=== PATIENT | male | born 1985 | race Caucasian/White ===

== ENCOUNTER 2021-05-22 02:08 | Emergency (ER) | payer SELFPAY ==
[2021-05-22] MEDS ORDERED: MORPHINE 4 MG/ML SYR ONE (03:01)
[2021-05-22] MEDS ORDERED: ONDANSETRON 4 MG (ODT) TAB ONE (03:02)
--- NOTE | 2021-05-22 04:51 | ER ---
Nurse's Notes [facility] Name: Caleb Espinoza Age: 35 yrs Sex: Male : 1985 Arrival Date: 05/22/2021 Time: 02:10 Bed 20 Private MD: Diagnosis: Dental caries, unspecified Presentation: 05/22 02:28 Chief complaint: Patient states: Left lower jaw pain, severe tonight; Reports unable to lp1 afford to have tooth pulled. Coronavirus screen: At this time, the client does not indicate any symptoms associated with coronavirus-19. Ebola Screen: No symptoms or risks identified at this time. Risk Assessment: Do you want to hurt yourself or someone else? Patient reports no desire to harm self or others. Onset of symptoms was May 22, 2021. 02:28 Acuity: [place] 4 lp1 02:28 Method Of Arrival: Ambulatory lp1 02:34 Initial Sepsis Screen: Does the patient meet any 2 criteria? No. Patient's initial lp1 sepsis screen is negative. Does the patient have a suspected source of infection? No. Patient's initial sepsis screen is negative. Triage Assessment: 02:35 General: Appears uncomfortable, Behavior is restless. lp1 02:39 EENT: Reports pain in left jaw. Neuro: Level of Consciousness is awake, alert, obeys lp1 commands. Historical: - Allergies: 02:35 No Known Allergies; lp1 - Home Meds: 02:35 None [Active]; lp1 - PMHx: 02:35 None; lp1 - PSHx: 02:35 None; lp1 - Immunization history:: Adult Immunizations up to date. - Social history:: Smoking status: Patient/guardian denies using tobacco, the patient reports quitting approximately 2 years ago. Screenin:43 Abuse screen: Denies threats or abuse. Nutritional screening: No deficits noted. ag7 Tuberculosis screening: No symptoms or risk factors identified. Fall Risk No fall in past 12 months (0 pts). No secondary diagnosis (0 pts). No IV (0 pts). Ambulatory Aid- None/Bed Rest/Nurse Assist (0 pts). Gait- Normal/Bed Rest/Wheelchair (0 pts) Mental Status- Overestimates/Forgets Limitations (15 pts.). Total Hurt Fall Scale indicates No Risk (0-24 pts). Assessment: 02:41 General: Appears in no apparent distress. uncomfortable, Behavior is cooperative, ag7 anxious. Pain: Complains of pain in left jaw Pain currently is 10 out of 10 on a pain scale. Quality of pain is described as sharp, shooting, stabbing, Pain began suddenly, Is continuous. Neuro: Level of Consciousness is awake, alert, obeys commands, Oriented to person, place, time, situation, Appropriate for age. Cardiovascular: Denies chest pain. Respiratory: Airway is patent Trachea midline Respiratory effort is even, unlabored, Respiratory pattern is regular, symmetrical. EENT: Oral mucosa is moist. Poor dentition noted. Dental caries noted in lower left second molar (#18). 03:49 Reassessment: Patient and/or family updated on plan of care and expected duration. Pain ag7 level reassessed. Patient is alert, oriented x 3, equal unlabored respirations, skin warm/dry/pink. Patient states feeling better. Patient states symptoms have improved. Vital Signs: 02:34 BP 168 / 105; Pulse 68; Resp 18; Temp 97.2(TE); Pulse Ox 99% on R/A; Weight 79.38 kg lp1 (R); Height 6 ft. 2 in. (187.96 cm); Pain 10/10; 03:33 Pain 5/10; ag7 04:57 BP 124 / 81 LA (auto/lg); Pulse 49 MON; Resp 18 S; Pulse Ox 100% on R/A; Pain 5/10; ag7 02:34 Body Mass Index 22.47 (79.38 kg, 187.96 cm) lp1 ED Course: 02:10 Patient arrived in ED. kz 02:30 Triage completed. lp1 02:30 Arm band placed on left wrist. lp1 02:35 Patient has correct armband on for positive identification. lp1 02:41 Kelley Ramirez, JASS is Primary Nurse. ag7 02:44 No provider procedures requiring assistance completed. ag7 02:49 Chano Delarosa MD is Attending Physician. kdr 04:58 Patient did not have IV access during this emergency room visit. ag7 Administered Medications: 03:07 Drug: Zofran (Ondansetron) 4 mg Route: PO; ag7 03:34 Follow up: Response: No adverse reaction ag7 03:08 Drug: morphine 4 mg {Note: RASS 1.} Route: IM; Site: right deltoid; ag7 03:33 Follow up: Pain 5/10; Response: No adverse reaction; Pain is decreased; RASS: Drowsy ag7 (-1) Outcome: 04:50 Discharge ordered by . kdr 04:58 Discharged to home ambulatory. ag7 04:58 Condition: stable 04:58 Discharge instructions given to patient, Instructed on discharge instructions, follow up and referral plans. medication usage, Demonstrated understanding of instructions, follow-up care, medications, Prescriptions given X 2. 04:59 Patient left the ED. ag7 Signatures: Chano Delarosa MD MD kdr Dayami Sinha RN RN lp1 Jazzy Fox Angela, RN RN ag7 Corrections: (The following items were deleted from the chart) 02:39 02:35 General: Appears uncomfortable, Behavior is restless, lp1 lp1
--- NOTE | 2021-05-22 04:51 | EDPHYS ---
Physician Documentation [facility] Name: Caleb Espinoza Age: 35 yrs Sex: Male : 1985 Arrival Date: 05/22/2021 Time: 02:10 Bed 20 Private MD: ED Physician Chano Delarosa HPI: 05/22 06:21 This 35 yrs old Male presents to ER via Ambulatory with complaints of Toothache. kdr 06:21 The patient presents with pain, swelling. The problem is located in the lower left kdr third molar, lower left second molar, lower left first molar and lower left second bicuspid. Onset: The symptoms/episode began/occurred suddenly, just prior to arrival. Duration: The symptoms are continuous, and are unchanged since they started. Modifying factors: The symptoms are alleviated by nothing, the symptoms are aggravated by nothing. Associated signs and symptoms: The patient has no apparent associated signs or symptoms. Severity of symptoms: At their worst the symptoms were mild, moderate, just prior to arrival, in the emergency department the symptoms are unchanged. The patient has experienced similar episodes in the past, a few times. The patient has not recently seen a physician. Historical: - Allergies: 02:35 No Known Allergies; lp1 - Home Meds: 02:35 None [Active]; lp1 - PMHx: 02:35 None; lp1 - PSHx: 02:35 None; lp1 - Immunization history:: Adult Immunizations up to date. - Social history:: Smoking status: Patient/guardian denies using tobacco, the patient reports quitting approximately 2 years ago. ROS: 06:21 Constitutional: Negative for fever, chills, and weight loss, Eyes: Negative for injury, kdr pain, redness, and discharge, Neck: Negative for injury, pain, and swelling, Cardiovascular: Negative for chest pain, palpitations, and edema, Respiratory: Negative for shortness of breath, cough, wheezing, and pleuritic chest pain. 06:21 ENT: Positive for dental pain, Gum pain Exam: 06:21 Constitutional: This is a well developed, well nourished patient who is awake, alert, kdr and in no acute distress. Head/Face: Normocephalic, atraumatic. Eyes: Pupils equal round and reactive to light, extra-ocular motions intact. Lids and lashes normal. Conjunctiva and sclera are non-icteric and not injected. Cornea within normal limits. Periorbital areas with no swelling, redness, or edema. Neck: Trachea midline, no thyromegaly or masses palpated, and no cervical lymphadenopathy. Supple, full range of motion without nuchal rigidity, or vertebral point tenderness. No Meningismus. Chest/axilla: Normal chest wall appearance and motion. Nontender with no deformity. No lesions are appreciated. 06:21 ENT: Mouth: Dental exam: dental caries, that is moderate, specifically in the lower left third molar (#17), lower left second molar (#18) and lower left first molar (#19), the patient wears dentures, missing teeth. Vital Signs: 02:34 BP 168 / 105; Pulse 68; Resp 18; Temp 97.2(TE); Pulse Ox 99% on R/A; Weight 79.38 kg lp1 (R); Height 6 ft. 2 in. (187.96 cm); Pain 10/10; 03:33 Pain 5/10; ag7 04:57 BP 124 / 81 LA (auto/lg); Pulse 49 MON; Resp 18 S; Pulse Ox 100% on R/A; Pain 5/10; ag7 02:34 Body Mass Index 22.47 (79.38 kg, 187.96 cm) lp1 MDM: 04:50 Patient medically screened. kdr 06:21 Data reviewed: vital signs, nurses notes. Counseling: I had a detailed discussion with kdr the patient and/or guardian regarding: the historical points, exam findings, and any diagnostic results supporting the discharge/admit diagnosis, the need for outpatient follow up. Administered Medications: 03:07 Drug: Zofran (Ondansetron) 4 mg Route: PO; ag7 03:34 Follow up: Response: No adverse reaction ag7 03:08 Drug: morphine 4 mg {Note: RASS 1.} Route: IM; Site: right deltoid; ag7 03:33 Follow up: Pain 5/10; Response: No adverse reaction; Pain is decreased; RASS: Drowsy ag7 (-1) Disposition Summary: 05/22/21 04:50 Discharge Ordered Location: Home kdr Problem: an acute exacerbation kdr Symptoms: have improved kdr Condition: Stable kdr Diagnosis - Dental caries, unspecified kdr Followup: kdr - With: Private Physician - When: 2 - 3 days - Reason: If symptoms return, Further diagnostic work-up, Recheck today's complaints, Continuance of care, Re-evaluation by your physician Discharge Instructions: - Discharge Summary Sheet kdr - Dental Pain, [id number] kdr - Dental Caries, Adult, [id number] kdr Forms: - Medication Reconciliation Form kdr - Thank You Letter kdr - Antibiotic Education kdr - Prescription Opioid Use kdr Prescriptions: - Amoxicillin 500 mg Oral Capsule - take 1 capsule by ORAL route every 8 hours for 10 days; 30 tablet; Refills: 0, kdr Product Selection Permitted - Tramadol 50 mg Oral Tablet - take 1 tablet by ORAL route every 8 hours as needed; 12 tablet; Refills: 0, kdr Product Selection Permitted Signatures: Chano Delarosa MD MD kdr Dayami Sinha RN RN lp1 Kelley Ramirez RN RN ag7
[2021-05-22 10:18] VITALS: TEMP 97.2
[2021-05-22 10:21] VITALS: BP 124/81; O2SAT 100
== END 2021-05-22 04:59 | disposition home or self-care (01) ==
LOC: ER 02:08
DX: K02.9 Dental caries, unspecified (principal)
CPT/HCPCS: 96372; 99283

== ENCOUNTER 2021-11-24 07:46 | Observation (INO) | payer SELFPAY ==
[2021-11-24 08:32] LABS: Absolute Lymphocytes (CBC) 1.7 K/uL (0.7-4.9); Hematocrit 46.2 % (39.6-49.0); Lymphocytes % 29.6 % (15.3-44.8); MCV 93.5 fL (80-100); MPV 8.6 fL (7.6-11.3); RBC Red Blood Cell Count 4.94 M/uL (4.33-5.43)
--- NOTE | 2021-11-24 08:39 | RAD REPORT ---
EXAM DESCRIPTION: CT - Head Brain Wo Cont - 11/24/2021 8:31 am CLINICAL HISTORY: Alteration of awareness/confusion COMPARISON: None. TECHNIQUE: Computed axial tomography of the head was obtained. IV contrast was not requested. All CT scans are performed using dose optimization technique as appropriate and may include automated exposure control or mA/KV adjustment according to patient size. FINDINGS: An intracranial bleed is not seen . The ventricles are normal in caliber. No significant hypodense areas within the brain visualized No extra-axial fluid collection is noted. Fluid within the sinuses/ mastoids is not seen. IMPRESSION: No acute intracranial abnormality is seen. If patient's symptoms persist MRI of the bra in would be recommended.
[2021-11-24 08:50] LABS: Potassium 3.8 mmol/L (3.5-5.1); Troponin High Sensitivity 5.7 pg/mL (<58.9)
[2021-11-24] MEDS ORDERED: NA CHLORIDE 0.9% 500 ML ONE (08:50)
[2021-11-24 09:19] LABS: Urine Blood Negative (Negative); Urine Glucose Negative (Negative); Urine Protein Negative (Negative); Urine Specific Gravity 1.015 (1.005-1.030)
--- NOTE | 2021-11-24 09:25 | RAD REPORT ---
EXAM DESCRIPTION: Christoph Single View11/24/2021 9:07 am CLINICAL HISTORY: Weakness and confusion COMPARISON: none FINDINGS: The lungs appear clear of acute infiltrate. The heart is normal size IMPRESSION: No acute abnormalities displayed
[2021-11-24 09:29] LABS: Protime INR 1.01
[2021-11-24 09:38] LABS: Barbiturates NEGATIVE (NEGATIVE); Benzodiazepines POSITIVE (NEGATIVE); Cocaine NEGATIVE (NEGATIVE); METHAMPHETAM NEGATIVE (NEGATIVE); Methadone NEGATIVE (NEGATIVE); Opiates NEGATIVE (NEGATIVE); Phencyclidine NEGATIVE (NEGATIVE); THC Cannibis POSITIVE (NEGATIVE)
[2021-11-24 09:42] LABS: Urine Mucus Slight /HPF (None Seen); Urine RBC <5 /HPF (None Seen)
[2021-11-24 09:51] LABS: ALT/SGPT 26 U/L (12-78); AST/SGOT 18 U/L (15-37); Albumin 3.9 g/dL (3.4-5.0); Alkaline Phosphatase 68 U/L (45-117); Bilirubin Direct 0.2 mg/dL (0-0.2); Bilirubin Total 0.8 mg/dL (0.2-1.0); Magnesium 2.3 mg/dL (1.8-2.4); Protein, Total 6.5 g/dL (6.4-8.2)
--- NOTE | 2021-11-24 10:26 | ER ---
Nurse's Notes [facility] Name: Caleb Espinoza Age: 36 yrs Sex: Male : 1985 Arrival Date: 11/24/2021 Time: 07:48 Bed 15 Private MD: Diagnosis: Slurred speech;Ataxic gait;Benzodiazepine use;Marijuana use Presentation: 11/24 07:49 Chief complaint: Patient states: woke up this morning and I feel numb from my chest iw down, my legs feel weak, my equilibrium is bad, I fell against the wall at home , felt fine yesterday , his reports pt was confused, he thought there were people in the house last night, he put the trash bag in the toilet , he said everyone was mad at him because he was drunk but he hadn't been drinking, he was rearranging the closet and when he finally fell asleep he had labored breathing. Coronavirus screen: At this time, the client does not indicate any symptoms associated with coronavirus-19. Ebola Screen: Patient negative for fever greater than or equal to 101.5 degrees Fahrenheit, and additional compatible Ebola Virus Disease symptoms Patient denies exposure to infectious person. Patient denies travel to an Ebola-affected area in the 21 days before illness onset. No symptoms or risks identified at this time. Initial Sepsis Screen: Does the patient meet any 2 criteria? No. Patient's initial sepsis screen is negative. Does the patient have a suspected source of infection? No. Patient's initial sepsis screen is negative. Risk Assessment: Do you want to hurt yourself or someone else?. Onset of symptoms was November 23, 2021. 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 - Social history:: Smoking status: Patient uses alcohol, only on a social basis. street drugs, marijuana. Screenin:30 Abuse screen: Denies threats or abuse. Denies injuries from another. Nutritional ko1 screening: No deficits noted. Tuberculosis screening: No symptoms or risk factors identified. Fall Risk None identified. 08:30 Fall Risk IV access (20 points). Gait- Impaired (20 pts.). Mental Status- ko1 Overestimates/Forgets Limitations (15 pts.). Assessment: 08:30 General: Appears in no apparent distress. comfortable, Behavior is cooperative. Pain: ko1 Denies pain. Neuro: Hendrickson Agitation-Sedation Scale (RASS): -1 Drowsy. Cardiovascular: No deficits noted. Respiratory: No deficits noted. GI: No deficits noted. : No deficits noted. EENT: No deficits noted. Derm: No deficits noted. Musculoskeletal: No deficits noted. Vital Signs: 07:49 BP 118 / 68; Pulse 62; Resp 16; Temp 98.4; Pulse Ox 100% on R/A; Weight 81.65 kg; iw Height 6 ft. 3 in. (190.50 cm); 08:00 BP 117 / 84; Pulse 57; Pulse Ox 100% ; ko1 09:00 BP 112 / 79; Pulse 44; ko1 10:00 BP 115 / 80; Pulse 53; ko1 11:00 BP 119 / 79; Pulse 51; ko1 12:00 BP 116 / 75; Pulse 54; ko1 07:49 Body Mass Index 22.50 (81.65 kg, 190.50 cm) iw ED Course: 07:48 Patient arrived in ED. rg4 07:54 Triage completed. iw 07:56 Arm band placed on. iw 08:14 Deana Jensen MD is Attending Physician. sd2 08:15 Inserted saline lock: 20 gauge in right antecubital area, using aseptic technique. vg1 Blood collected. 08:23 Melonie Magana, RN is Primary Nurse. ko1 08:23 Basic Metabolic Panel Sent. ko1 08:23 CBC with Diff Sent. ko1 08:23 Troponin HS Sent. ko1 08:30 Patient has correct armband on for positive identification. Fall risk band placed. Bed ko1 in low position. Call light in reach. Side rails up X2. Client placed on continuous cardiac and pulse oximetry monitoring. NIBP monitoring applied. cafeteria monitor on. 09:12 Ptt, Activated Sent. ko1 09:12 PT-INR Sent. ko1 09:12 Acetaminophen Sent. ko1 09:12 Ethanol Sent. ko1 09:12 Salicylate Sent. ko1 09:12 AMMONIA Sent. ko1 09:12 Procalcitonin Sent. ko1 09:12 Lactate Sent. ko1 09:12 Magnesium Sent. ko1 09:12 Hepatic Function Sent. ko1 09:22 Urine Microscopic Only Sent. ko1 09:22 Urine Drug Screen Sent. ko1 10:25 Annabel Au MD is Hospitalizing Provider. sd2 10:28 CT In Process Unspecified. EDMS 10:36 RAD In Process Unspecified. EDMS 11:10 SARS-COV-2 Antigen Rapid Sent. ko1 11:10 Salicylates Level Sent. ko1 11:10 Acetaminophen Level Sent. ko1 11:10 Magnesium Sent. ko1 11:10 Liver (Hepatic) Function Sent. ko1 11:11 Alcohol Serum/Plasma Sent. ko1 11:11 Ammonia Sent. ko1 11:11 Lactate Sent. ko1 11:11 PTT, Activated Partial Thromb Sent. ko1 11:11 Protime (+INR) Sent. ko1 11:11 Troponin High Sensitivity Sent. ko1 11:11 Basic Metabolic Panel Sent. ko1 11:11 Procalcitonin Sent. ko1 11:11 CBC with Automated Diff Sent. ko1 12:56 Report given to Alison (201). ko1 Administered Medications: 09:22 Drug: NS 0.9% 500 ml Route: IV; Rate: bolus; Site: right antecubital; ko1 Intake: 12:53 PO: 360ml (Water); IV: 500ml (IV Fluid); Total: 860ml. ko1 Outcome: 10:26 Decision to Hospitalize by Provider. sd2 13:10 Admitted to Med/surg accompanied by nurse, family with patient, via wheelchair, room ko1 201, with chart, Report called to JASS Rosas 14:16 Patient left the ED. iw Signatures: Dispatcher [employer] EDMS Lori Espinoza, RN Genesis Bautista4 Yue Guerra RN RN rowan1 Deana Jensen MD MD sd2 Melonie Magana RN RN ko1
--- NOTE | 2021-11-24 10:26 | EDPHYS ---
Physician Documentation [facility] Name: Caleb Espinoza Age: 36 yrs Sex: Male : 1985 Arrival Date: 11/24/2021 Time: 07:48 Bed 15 Private MD: ED Physician Deana Jensen HPI: 11/24 08:41 This 36 yrs old Male presents to ER via Wheelchair with complaints of Altered Mental sd2 Status. 08:41 36-year-old male presents with chief complaint of altered mental status. He reports sd2 that he did drink some minimal alcohol and use marijuana which he has used previously last night. He denies any other substance abuse. He reports that when he woke up this morning around 6 or 7 AM he felt like his equilibrium was off from the "chest down" he reports he is unable to take a step without leaning to 1 side or the other. He denies any recent illness, fevers or sick contacts. He states he does not believe his marijuana could have been laced with anything. He reports he feels drowsy but otherwise has no pain or current complaints. He denies any chest pain, shortness of breath, nausea, vomiting or diarrhea. Denies having any symptoms similar to this previously. 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 - Social history:: Smoking status: Patient uses alcohol, only on a social basis. street drugs, marijuana. ROS: 08:41 Constitutional: Negative for fever, chills, and weight loss, Eyes: Negative for injury, sd2 pain, redness, and discharge, Cardiovascular: Negative for chest pain, palpitations, and edema, Respiratory: Negative for shortness of breath, cough, wheezing. Abdomen/GI: Negative for abdominal pain, nausea, vomiting, diarrhea. MS/Extremity: Negative for injury and deformity, Skin: Negative for injury, rash, and discoloration, Neuro: Positive for numbness and difficulty walking/balancing. Negative for headache and tingling. Exam: 08:41 Constitutional: This is a well developed, well nourished patient who is awake, alert, sd2 and in no acute distress. Pt does appear somewhat drowsy but remains awake and alert throughout entire exam without difficulty. Head/Face: Normocephalic, atraumatic. Eyes: EOMI, normal conjunctiva bilaterally Chest/axilla: Normal chest wall appearance and motion. Nontender with no deformity. Cardiovascular: Regular rate and rhythm with a normal S1 and S2. No gallops, murmurs, or rubs. 2+ distal pulses. Respiratory: Lungs have equal breath sounds bilaterally, clear to auscultation and percussion. No rales, rhonchi or wheezes noted. No increased work of breathing, no retractions or nasal flaring. Abdomen/GI: Soft, non-tender, with normal bowel sounds. No guarding or rebound. No evidence of tenderness throughout. Skin: Warm, dry with normal turgor. Normal color with no rashes, no lesions, and no evidence of cellulitis. MS/ Extremity: Pulses equal, no cyanosis. Neurovascular intact. Full, normal range of motion. Ambulatory without difficulty. Neuro: Awake and alert, GCS 15, oriented to person, place, time, and situation. Cranial nerves II-XII grossly intact aside from noted slurred speech. Motor strength 5/5 in all extremities. Sensory grossly intact. Cerebellar exam normal. Psych: Awake, alert, with orientation to person, place and time. 08:56 ECG was reviewed by the Attending Physician. SInus bradycardia, rate 50, no STEMI sd2 criteria or ST-T wave changes 10:26 Radiologist reports: no acute pathology. sd2 Vital Signs: 07:49 BP 118 / 68; Pulse 62; Resp 16; Temp 98.4; Pulse Ox 100% on R/A; Weight 81.65 kg; iw Height 6 ft. 3 in. (190.50 cm); 08:00 BP 117 / 84; Pulse 57; Pulse Ox 100% ; ko1 09:00 BP 112 / 79; Pulse 44; ko1 10:00 BP 115 / 80; Pulse 53; ko1 11:00 BP 119 / 79; Pulse 51; ko1 12:00 BP 116 / 75; Pulse 54; ko1 07:49 Body Mass Index 22.50 (81.65 kg, 190.50 cm) MDM: 08:14 Patient medically screened. sd2 08:41 Differential diagnosis: Dehydration, electrolyte abnormality, UTI, PNA, anemia, sd2 intracranial hemorrhage, CVA, substance abuse among others. Data reviewed: vital signs, nurses notes. Data reviewed: lab test result(s), EKG, radiologic studies. Counseling: I had a sd2 detailed discussion with the patient and/or guardian regarding: the historical points, exam findings, and any diagnostic results supporting the discharge/admit diagnosis, the need for further work-up and treatment in the hospital. ED course: Labs and imaging reviewed. ETOH negative. Salicylate level with small positive number. Pt does not recall using anything like this. UDS positive for benzos and THC. Reports he did take 1 Xanax last night but is not the first time he has used that or that amount. CT head negative for acute process. labs otherwise within normal limits. Pt remains ataxic with slurred speech. Will plan to admit for obs for continued workup. Likely substance-induced but unable to prove at this time. . 11/24 08:13 Order name: Basic Metabolic Panel iw 11/24 08:13 Order name: CBC with Diff iw 11/24 08:13 Order name: Troponin HS iw 11/24 08:32 Order name: CBC with Automated Diff EDMI 11/24 08:47 Order name: Hepatic Function sd2 11/24 08:47 Order name: Magnesium sd2 11/24 08:47 Order name: AMMONIA sd2 11/24 08:47 Order name: Lactate sd2 11/24 08:47 Order name: Procalcitonin sd2 11/24 08:47 Order name: Salicylate sd2 11/24 08:47 Order name: Acetaminophen sd2 11/24 08:47 Order name: Ethanol sd2 11/24 08:47 Order name: Urine Drug Screen sd2 11/24 08:47 Order name: Urine Microscopic Only sd2 11/24 08:47 Order name: PT-INR sd2 11/24 08:47 Order name: Ptt, Activated sd2 11/24 08:50 Order name: Basic Metabolic Panel EDMS 11/24 08:50 Order name: Troponin High Sensitivity EDMS 11/24 09:20 Order name: Urine Dipstick-Ancillary; Complete Time: 09:49 EDMS 11/24 09:29 Order name: Protime (+INR) EDMS 11/24 09:29 Order name: PTT, Activated Partial Thromb EDMS 11/24 09:38 Order name: Urine Drug Screen EDMS 11/24 09:40 Order name: Lactate EDMS 11/24 09:41 Order name: Ammonia EDMS 11/24 09:43 Order name: Urine Microscopic Only EDMS 11/24 09:44 Order name: Alcohol Serum/Plasma EDMS 11/24 09:51 Order name: Liver (Hepatic) Function EDMS 11/24 09:51 Order name: Magnesium EDMS 11/24 10:03 Order name: Acetaminophen Level EDMS 11/24 10:03 Order name: Salicylates Level EDMS 11/24 08:09 Order name: CT Head Brain wo Cont iw 11/24 08:13 Order name: XRAY Chest (1 view) iw 11/24 08:13 Order name: EKG; Complete Time: 08:14 iw 11/24 08:13 Order name: Cardiac monitoring; Complete Time: 08:21 iw 11/24 08:13 Order name: EKG - Nurse/Tech; Complete Time: 08:21 iw 11/24 08:13 Order name: IV Saline Lock; Complete Time: 08:21 iw 11/24 08:13 Order name: Labs collected and sent; Complete Time: 08:21 iw 11/24 08:13 Order name: O2 Per Protocol; Complete Time: 08:21 iw 11/24 08:13 Order name: O2 Sat Monitoring; Complete Time: 08:21 iw 11/24 08:40 Order name: CT EDMI 11/24 08:47 Order name: Urine Dipstick-Ancillary (obtain specimen); Complete Time: 09:22 sd2 11/24 09:25 Order name: RAD EDMI 11/24 10:28 Order name: SARS-COV-2 Antigen Rapid sd2 11/24 11:15 Order name: CONS Physician Consult EDMI 11/24 11:23 Order name: NPO EDMI 11/24 14:06 Order name: MRI EDMI Administered Medications: 09:22 Drug: NS 0.9% 500 ml Route: IV; Rate: bolus; Site: right antecubital; ko1 Disposition Summary: 11/24/21 10:26 Hospitalization Ordered Hospitalization Status: Observation sd2 Provider: Annabel Au2 Location: Telemetry/MedSurg (observation) sd2 Condition: Stable sd2 Problem: new sd2 Symptoms: are unchanged sd2 Bed/Room Type: Standard sd2 Room Assignment: 201(11/24/21 12:24) bd Diagnosis - Slurred speech sd2 - Ataxic gait sd2 - Benzodiazepine use sd2 - Marijuana use sd2 Forms: - Medication Reconciliation Form sd2 - SBAR form sd2 Signatures: Dispatcher [employer] EDMS Sabina Key Irene, RN RN iw Dunlop, Stephanie, MD MD sd2 Melonie Magana RN RN ko1 Corrections: (The following items were deleted from the chart) 12:24 10:26 sd2 bd
[2021-11-24 11:44] LABS: SARS-CoV-2 Antigen Rapid Res Negative (Negative)
[2021-11-24] MEDS ORDERED: HYDROCODONE/APAP 5/325 MG TAB PO PRN (12:17)
[2021-11-24] MEDS ORDERED: ACETAMINOPHEN 500 MG TAB PO PRN (13:16)
[2021-11-24] MEDS ORDERED: ONDANSETRON 4 MG/2 ML VIAL IV PRN (13:16)
--- NOTE | 2021-11-24 13:24 | P.HP ---
Certification for Inpatient Patient admitted to: Observation With expected LOS: <2 Midnights Patient will require the following post-hospital care: None Practitioner: I am a practitioner with admitting privileges, knowledge of patient current condition, hospital course, and medical plan of care. Services: Services provided to patient in accordance with Admission requirements found in Title 42 Section 412.3 of the Code of Federal Regulations Patient History Date of Service: 11/24/21 Reason for admission: AMS, Ataxia History of Present Illness: Patient is a 36-year-old male with no known past medical history presents with complaint of altered mental status. Patient currently alert and oriented x3 with episode of period of confusion. Patient's partner noted that patient was confused yesterday, had episodes of visual hallucination and was having slurred speech. Patient reported associated signs and symptoms of bilateral upper and lower extremity numbness, dizziness, chills, ataxia and weakness on his lower extremities. Patient denies any other signs and symptoms. Symptoms are aggravated or relieved by nothing. Patient's partner decided to call EMS who brought patient to the hospital for medical evaluation. Allergies No Known Allergies Allergy (Unverified 03/03/12 13:05) Home medications list reviewed: No Home Medications: NK [No Home Meds] 11/24/21 - Past Medical/Surgical History Diabetic: No Past Medical History: Reviewed- Non-Contributory Past Surgical History: Reviewed- Non-Contributory - Family History Father History Unknown: Yes Mother -: Heart disease - Social History Smoking Status: Unknown if ever smoked Alcohol use: No CD- Drugs: No Caffeine use: Yes Place of Residence: Home Review of Systems General: Chills, Weakness Eyes: Unremarkable ENT: Unremarkable Respiratory: Shortness of Breath Cardiovascular: Other (Dizziness ) Gastrointestinal: Unremarkable Genitourinary: Unremarkable Musculoskeletal: Other (Ataxia ) Integumentary: Unremarkable Neurological: Weakness, Numbness, Other (Dizziness, Ataxia, confusion, ) Lymphatics: Unremarkable Physical Examination - Physical Exam General: Alert, In no apparent distress, Oriented x3, Confused HEENT: Atraumatic, PERRLA, Mucous membr. moist/pink, EOMI, Sclerae nonicteric Neck: Supple, 2+ carotid pulse no bruit, No LAD, Without JVD or thyroid abnormality Respiratory: Clear to auscultation bilaterally, Normal air movement Cardiovascular: Regular rate/rhythm, Normal S1 S2 Capillary refill: <2 Seconds Gastrointestinal: Normal bowel sounds, No tenderness Musculoskeletal: No clubbing, No swelling, No tenderness Integumentary: No rashes Neurological: Normal tone, Normal affect, Abnormal gait, Abnormal speech Lymphatics: No axilla or inguinal lymphadenopathy - Studies Laboratory Data (last 24 hrs) 11/24/21 09:05: Magnesium 2.3, Total Bilirubin 0.8, AST 18, ALT 26, Alkaline Phosphatase 68 11/24/21 09:00: PT 11.1, INR 1.01, APTT 28.1 11/24/21 08:15: WBC 5.90, Hgb 15.5, Hct 46.2, Plt Count 182 11/24/21 08:15: Sodium 140, Potassium 3.8, BUN 8, Creatinine 0.93, Glucose 96 Assessment and Plan - Plan --Acute encephalopathy. Unclear etiology. UDS positive for benzos and THC. MRI brain unremarkable for any acute intracranial abnormality. Neurology consulted. Will await further recommendations. --Dysarthria. Slurred speech improving. Further management per neurologist. --Ataxia. Unclear etiology. MRI brain negative. Neurologist on board. PT eval and treat. --Cannabis use disorder. Patient reported that his last use was yesterday. Patient counseled on drug cessation. --History of brain tumor. Patient reports a history of brain tumor removal. Continue supportive care --Skin Paresthesias. Patient reports resolution at time of assessment. Continue supportive care. --DVT prophylaxis with Lovenox subQ. Discharge Plan: Home Plan to discharge in: 48 Hours - Advance Directives Does patient have a Living Will: No Does patient have a Durable POA for Healthcare: No - Code Status/Comfort Care Code Status Assessed: Yes Code Status: Full Code Physician Review: Patient Assessed, Agree with Above Assessment and Plan Critical Care: No
--- NOTE | 2021-11-24 14:05 | RAD REPORT ---
EXAM DESCRIPTION: MRI - Brain Wo Cont - 11/24/2021 1:52 pm CLINICAL HISTORY: Ataxia, Slurred speech Headache, drowsiness COMPARISON: Chest Single View dated 11/24/2021; Head Brain Wo Cont dated 11/24/2021 TECHNIQUE: Multi-sequence, multiplanar MR imaging of the brain was performed without contrast. FINDINGS: No intracranial hemorrhage, hydrocephalus or extra-axial fluid collections. No edema or sh ift of midline structures. No findings to suspect brain mass. DWI is negative for acute CVA. Midline structures are normally formed. Mastoid air cells and paranasal sinuses are clear. IMPRESSION: No acute or concerning intracranial abnormalities.
[2021-11-24 14:10] VITALS: BMI 22.5
[2021-11-24] MEDS ORDERED: INFLUENZA VACCINE (for 6+ mo) 0.5 ML DOSE IMVAC ONE (15:00)
[2021-11-24] MEDS ORDERED: POTASSIUM CL SA 10 MEQ TAB PO ONE (15:54)
[2021-11-24 16:32] LABS: Magnesium 2.2 mg/dL (1.8-2.4); Phosphorus 2.8 mg/dL (2.5-4.9); Thyroid Stimulating Hormone 1.12 uIU/mL (0.360-3.740)
[2021-11-25 06:06] LABS: Absolute Lymphocytes (CBC) 2.1 K/uL (0.7-4.9); Hematocrit 48.4 % (39.6-49.0); Lymphocytes % 30.6 % (15.3-44.8); MCV 93.7 fL (80-100); MPV 9.5 fL (7.6-11.3); RBC Red Blood Cell Count 5.16 M/uL (4.33-5.43)
[2021-11-25 06:42] LABS: Bilirubin Total 0.7 mg/dL (0.2-1.0); Folic Acid, (Folate) 9.8 ng/mL (3.1-17.5); Magnesium 2.1 mg/dL (1.8-2.4); Potassium 4.1 mmol/L (3.5-5.1); Protein, Total 6.8 g/dL (6.4-8.2)
[2021-11-25 08:12] VITALS: BP 111/69; TEMP 97
[2021-11-25] MEDS ORDERED: ENOXAPARIN 40 MG/0.4 ML SQ SCH (09:00)
[2021-11-25 09:17] VITALS: O2SAT 100
--- NOTE | 2021-11-25 14:06 | EKG ---
Test Date: 2021-11-24 Test Time: 08:14:01 Cook Dinner: MEASUREMENT RESULTS: Intervals: Rate: 50 NC: 134 QRSD: 96 QT: 434 QTc: 395 [place]: P: 34 NC: 134 QRS: 76 T: 59 INTERPRETIVE STATEMENTS: Sinus bradycardia Otherwise normal ECG Compared to ECG 03/03/2012 13:06:00 No significant changes Electronically Signed On 11-25-21 14:02:30 CDT by Santosh Lindsay
== END 2021-11-25 10:30 | disposition home or self-care (01) ==
LOC: ER 07:46 → ERHOLD 11:12 → 2ND 14:01
PROVIDERS: ADMIT Hospitalist; ATTEND Hospitalist
DX: G93.40 Encephalopathy, unspecified (principal); R47.1 Dysarthria and anarthria; R27.0 Ataxia, unspecified; R20.2 Paresthesia of skin; Z20.822 Contact with and (suspected) exposure to COVID-19
CPT/HCPCS: 36415; 70450; 70551; 71045; 80048; 80053; 80076; 80307; 80320; 80329; 81003; 81015; 82140; 82550; 82607; 82746; 83540; 83605; 83735; 84100; 84145; 84439; 84443; 84484; 85025; 85610; 85730; 87811; 93005; 97161; 99285; G0378; J1650; J7040